=== PATIENT | female | born 1985 | race Caucasian/White ===

== ENCOUNTER 2019-06-12 09:51 | Emergency (ER) | payer OTHER ==
[~2019-06-12] VITALS: Ht 157.5 cm; Wt 113.0 kg
[2019-06-12 10:01] VITALS: BP 183/109
[2019-06-12 10:23] LABS: BASOPHILS # (AUTO) 0.04 x10^3/uL (0-0.1); BASOPHILS % (AUTO) 1 % (0-1); EOSINOPHILS # (AUTO) 0.15 x10^3/uL (0-0.4); EOSINOPHILS % (AUTO) 2 % (1-7); LYMPHOCYTES # (AUTO) 2.03 x10^3/uL (1-3.4); LYMPHOCYTES % (AUTO) 27 % (22-44); MD NO; MEAN CORPUSCULAR HEMOGLOBIN 30.3 pg (27.0-34.8); MEAN CORPUSCULAR VOLUME 89.2 fL (80-100); MEAN PLATELET VOLUME 7.2 fL (7.4-10.4); MONOCYTES # (AUTO) 0.43 x10^3/uL (0.2-0.8); MONOCYTES % (AUTO) 6 % (2-9); NEUTROPHILS # (AUTO) 4.84 x10^3/uL (1.8-6.8); NEUTROPHILS % (AUTO) 65 % (42-75); PLATELET COUNT 272 x10^3/uL (130-400); RED BLOOD COUNT 4.94 x10^6/uL (3.82-5.3); RED CELL DISTRIBUTION WIDTH 13.4 % (9.6-15.2)
[2019-06-12 10:35] LABS: ALBUMIN 3.3 g/dL (3.4-5.0); ANION GAP 7 mmol/L (5-15); CALCIUM 8.6 mg/dL (8.5-10.1); CHLORIDE 107 mmol/L (98-107)
[2019-06-12 10:41] LABS: ALANINE AMINOTRANSFERASE 25 U/L (12-78); ALKALINE PHOSPHATASE 81 U/L (45-117); BILIRUBIN,TOTAL 0.4 mg/dL (0.2-1.0)
--- NOTE | 2019-06-12 11:40 | NUR ---
Pt to room 4 from lobby.
--- NOTE | 2019-06-12 11:46 | NUR ---
Pt reports vag bleed onset yest, +clots this morning. Has slowed down to spotting. Provided w/ gown & blanket. To US.
--- NOTE | 2019-06-12 11:56 | NUR ---
RECEIVED REPORT FROM KELLIE MACIAS. ASSUMING CARE AT THIS TIME. PT AT US.
--- NOTE | 2019-06-12 12:17 | NUR ---
PT BACK FROM US. PT URINATED PRIOR TO US AND UNABLE TO PROVIDE SAMPLE AT THIS TIME. PT RESTING ON GURNEY. FAMILY AT BEDSIDE.
== END 2019-06-12 13:01 ==
LOC: ED 12:55
DX: O03.4 Incomplete spontaneous abortion without complication (principal)
CPT/HCPCS: 36415; 76830; 80053; 84702; 85025; 86901; 99284